=== PATIENT | male | born 1970 | race Caucasian/White ===

== ENCOUNTER 2018-09-09 22:57 | Emergency (ER) | payer SELFPAY ==
[~2018-09-09] VITALS: Ht 177.8 cm; Wt 76.7 kg
[2018-09-09 23:07] VITALS: BP 115/65
[2018-09-10] MEDS ORDERED: IBUPROFEN 600 MG TABLET ONE (00:39)
--- NOTE | 2018-09-10 00:45 | NUR ---
PATIENT MEDICATED FOR PAIN. DISCHARGED WITH PRESCRIPTION AND INSTRUCTION. VERBALIZED UNDERSTANDING.
[2018-09-10] MEDS ORDERED: IBUPROFEN 600 MG TABLET PO ONE (01:00)
== END 2018-09-10 00:49 | disposition home or self-care (01) ==
LOC: ED 09-10 00:48
DX: S39.012A Strain of muscle, fascia and tendon of lower back, initial encounter (principal); X58.XXXA Exposure to other specified factors, initial encounter; Y93.89 Activity, other specified; Y92.89 Other specified places as the place of occurrence of the external cause; Y99.8 Other external cause status
CPT/HCPCS: 72110; 99283